=== PATIENT | female | born 1960 | race African-American/Black ===

== ENCOUNTER 2018-04-06 07:42 | Emergency (ER) | payer SELFPAY ==
[~2018-04-06] VITALS: Ht 172.7 cm; Wt 60.0 kg
[2018-04-06 07:56] VITALS: BP 142/70
[2018-04-06] MEDS ORDERED: ALBUTEROL (0.083%) 2.5MG/3ML NEB HHN STA (11:31)
[2018-04-06] MEDS ORDERED: PREDNISONE 20MG TABLET PO STA (11:31)
[2018-04-06] MEDS ORDERED: IPRATROPIUM BROMIDE (0.02%) 0.5MG/2.5ML NEB HHN STA (11:31)
== END 2018-04-06 12:46 | disposition home or self-care (01) ==
LOC: ER 07:42
DX: R91.8 Other nonspecific abnormal finding of lung field (principal); F17.200 Nicotine dependence, unspecified, uncomplicated
CPT/HCPCS: 71046; 94640; 99284; J7512; J7611; 99283